=== PATIENT | male | born 1945 | race Caucasian/White ===

== ENCOUNTER 2017-08-18 04:24 | Emergency (ER) | payer BC, OTHER ==
[~2017-08-18] VITALS: Ht 180.3 cm; Wt 86.4 kg
[~2017-08-18 04:24] MED LIST: ASPIRIN81 M1 PO; Antacid PO; BP med PO; CYANOCOBALAM1000 MCG PO; Cholesterol Med PO; DURICEF1 GM PO; GABAPENTIN300 MG PO; KEFLEX500 MG PO; LEVEMIR FL100 UNIT/1 SC; LISINOPRIL2.5 MG PO; LISINOPRIL20 MG PO; NOVOLOG PE100 UNITS/ SC; NYSTATIN15 GM TP; OMEPRAZOLE40 M1 PO; PRAVACHOL20 MG PO; ST. JOSEPH ASPI81 MG PO; VERAPAMIL HCL360 MG PO; VERAPAMIL PO; VERELAN 360 MG360 MG; VERTIGO MED PO; VIAGRA25 MG PO; VICODIN,LORT1 TABLET PO; VITAMIN D1000 UNIT PO; Vicodin,Norco 5/325 PO; [UNRECOGNIZED DRUG - OTHER] PO
[2017-08-18 05:38] LABS: BASOPHIL (%) 0.5 % (0-1); EOSINOPHIL (%) 3.8 % (0-5); EOSINOPHIL COUNT 0.2 K/uL (0-0.3); HEMATOCRIT 40.6 % (38.0-50.0); HEMOGLOBIN 14.1 G/DL (12.5-16.6); IMMATURE GRANULOCYTE (%) 0.5 % (0.0-0.7); LYMPHOCYTE (%) 31.8 % (15-42); LYMPHOCYTE COUNT 1.8 K/uL (1.0-2.8); MCH 32.8 PG (29.0-34.0); MCHC 34.7 G/DL (30.0-36.0); MCV 94.4 FL (86-99); MONOCYTE (%) 8.2 % (3-12); MONOCYTE COUNT 0.5 K/uL (0-0.8); NEUTROPHIL (%) 55.2 % (45-76); NEUTROPHIL COUNT 3.1 K/uL (1.8-6.4); PLATELET COUNT 208 K/uL (156-360); RBC DIS.WIDTH-CV 12.2 % (11.8-14.6); RBC DIS.WIDTH-SD 42.4 % (39-53); WHITE BLOOD COUNT 5.6 K/uL (4.1-10.2)
[2017-08-18 05:40] LABS: ALBUMIN 3.8 g/dL (3.2-4.8); CHLORIDE 105 mEq/L (99-109); POTASSIUM 4.2 mEq/L (3.7-5.4); SODIUM 137 mEq/L (136-147)
[2017-08-18 05:42] LABS: GLUCOSE 199 mg/dL (70-99); TOTAL PROTEIN 6.2 g/dL (6.4-8.3)
[2017-08-18 05:44] LABS: TOTAL BILIRUBIN 0.3 mg/dL (0.0-1.0)
[2017-08-18 05:46] LABS: ALKALINE PHOSPHATASE 88 IU/L (3-129); CREATININE 1.2 mg/dL (0.6-1.3); GFR ESTIMATE (CALCULATED) > 59 mL/min/ (58.99-99999)
[2017-08-18 05:47] LABS: AST (GOT) 16 IU/L (2-34); UREA NITROGEN (BUN) 24 mg/dL (9-23)
[2017-08-18 05:48] LABS: DIRECT BILIRUBIN 0.1 mg/dL (0.0-0.3)
[2017-08-18 05:49] LABS: ALT (GPT) 10 IU/L (3-49); LIPASE 48 U/L (1.0-51.0)
[2017-08-18] MEDS ORDERED: NORCO 5/3251 TABLET PO (05:53)
[2017-08-18 05:57] LABS: APPEARANCE CLEAR ((CLEAR)); BILIRUBIN NEGATIVE; BLOOD NEGATIVE; COLOR YELLOW ((YELLOW)); GLUCOSE (STRIP) 50; KETONES NEGATIVE; LEUKOCYTES SMALL; NITRITE NEGATIVE; PROTEIN (STRIP) NEGATIVE; SPECIFIC GRAVITY 1.019 (1.000-1.030)
[2017-08-18 06:01] LABS: BACTERIA NONE SEEN /HPF; EPITHELIAL CELLS NONE SEEN /HPF; MUCUS TRACE /LPF; RED BLOOD CELLS 0-5 /HPF (0-5)
[2017-08-18] MEDS ORDERED: MIRALAX255 GM PO (06:11)
[2017-08-18] MEDS ORDERED: KEFLEX500 MG PO (06:11)
[2017-08-18 06:33] VITALS: BP 142/76
== END 2017-08-18 06:35 | disposition home or self-care (01) ==
LOC: EME → EDBD 04:24 → EME 06:35
PROVIDERS: Physician Assistant
DX: N30.00 Acute cystitis without hematuria (principal); K59.00 Constipation, unspecified; R10.9 Unspecified abdominal pain; E78.5 Hyperlipidemia, unspecified; I10 Essential (primary) hypertension; N28.9 Disorder of kidney and ureter, unspecified; Z90.49 Acquired absence of other specified parts of digestive tract; K21.9 Gastro-esophageal reflux disease without esophagitis; F17.200 Nicotine dependence, unspecified, uncomplicated
CPT/HCPCS: 74176; 80048; 80076; 81003; 83690; 85025; 87086; 99281; 99285; J3010